=== PATIENT | male | born 1985 | race Caucasian/White ===

== ENCOUNTER 2019-09-26 08:14 | Day surgery (SDC) | payer OTHER ==
[2019-09-25 13:56] VITALS: BMI 21.2
[2019-09-26] MEDS ORDERED: Ciprofloxacin 0.2% Otic 1 DROP CON ONE (08:48)
[2019-09-26] MEDS ORDERED: Ketamine 50 MG/ML (10ML VIAL) ONE (10:24)
[2019-09-26] MEDS ORDERED: Dexamethasone 20 MG/5 ML VIAL ONE (10:24)
[2019-09-26] MEDS ORDERED: Ondansetron PF 4 MG/2 ML Vial ONE (10:24)
[2019-09-26] MEDS ORDERED: Midazolam HCl 2 mg/2 ml Vial ONE (10:33)
[2019-09-26] MEDS ORDERED: AFRIN NASAL MIST 15 ML BOT ONE (11:00)
[2019-09-26] MEDS ORDERED: hydrALAZINE 20 MG/ML VIAL ONE (11:56)
--- NOTE | 2019-09-26 12:00 | OP ---
DATE OF PROCEDURE: 09/26/2019 PREOPERATIVE DIAGNOSES: 1. Chronic otitis externa. 2. Chronic otitis media. 3. Severe developmental delay. POSTOPERATIVE DIAGNOSES: 1. Chronic otitis externa. 2. Chronic otitis media. 3. Severe developmental delay. PROCEDURES PERFORMED: 1. Evaluation under anesthesia. 2. Left myringotomy with tube placement. FINDINGS: The patient was found to have a normal right ear after the ear canal was cleared of obstructive cerumen. The left ear had a severely retracted TM with obliteration of the middle ear space and a significant anterior tympanic membrane retraction with the retraction pocket extending anterior superiorly. There was no obvious squamous debris. PROCEDURE IN DETAIL: The patient was identified, brought to the operating room, placed on the operating table in supine position. General mask anesthesia was performed and we positioned the patient for surgery. The right ear was cleared and obstructive cerumen were removed. The tympanic membrane was visualized and appeared to be relatively intact and with normal middle ear ventilation. We turned attention to the contralateral side, where a significantly different finding was encountered. The eardrum was severely retracted and there was obliteration of the middle ear space with middle ear mucosa being adherent to the retracted tympanic membrane. There was a significant retraction of the anterior tympanic membrane that extended anterosuperiorly without the evidence of squamous debris. A Robbins tube was placed in the posterior inferior aspect of the tympanic membrane and to try to retrieve some middle ear ventilation. Otic drops were applied. The patient was awakened, extubated, and taken to recovery room in stable condition prior to discharge. Job ID: [id number]
== END 2019-09-26 12:50 | disposition home or self-care (01) ==
LOC: SDC 08:14
PROVIDERS: ATTEND Specialist
PROC: 099580Z Drainage of Right Middle Ear with Drainage Device, Via Natural or Artificial Opening Endoscopic (ICD-10-PCS; principal; 2019-09-26)
PROC: 099680Z Drainage of Left Middle Ear with Drainage Device, Via Natural or Artificial Opening Endoscopic (ICD-10-PCS; principal; 2019-09-26)
DX: H66.92 Otitis media, unspecified, left ear (principal); H60.62 Unspecified chronic otitis externa, left ear; H73.892 Other specified disorders of tympanic membrane, left ear; H69.80 Other specified disorders of Eustachian tube, unspecified ear; R62.50 Unspecified lack of expected normal physiological development in childhood; Z88.5 Allergy status to narcotic agent; Z91.040 Latex allergy status; Z91.048 Other nonmedicinal substance allergy status
CPT/HCPCS: J0360; J1100; J2250; J2405

== ENCOUNTER 2020-07-23 06:28 | Day surgery (SDC) | payer MEDICARE, MEDICAID ==
[2020-07-22 12:47] VITALS: BMI 17.4
[2020-07-23] MEDS ORDERED: Ciprofloxacin 0.2% Otic (0.25ML CONTAINER) ONE (06:42)
[2020-07-23] MEDS ORDERED: Fentanyl 100 MCG/2 ML VIAL ONE (07:48)
[2020-07-23] MEDS ORDERED: AFRIN NASAL MIST 15 ML BOT ONE (09:03)
[2020-07-23] MEDS ORDERED: PROPOFOL 200 MG/20 ML VIAL ONE (10:30)
[2020-07-23] MEDS ORDERED: Ondansetron PF 4 MG/2 ML Vial ONE (10:30)
[2020-07-23] MEDS ORDERED: Dexamethasone 20 MG/5 ML VIAL ONE (10:30)
[2020-07-23] MEDS ORDERED: Lidocaine 1% PF 5 ML VIAL ONE (10:30)
--- NOTE | 2020-07-23 11:00 | OP ---
DATE OF PROCEDURE: 07/23/2020 PREOPERATIVE DIAGNOSES: 1. Bilateral serous otitis media. 2. Left chronic otitis media. 3. Left otalgia. 4. Chronic eustachian tube dysfunction. POSTOPERATIVE DIAGNOSES: 1. Bilateral serous otitis media. 2. Left chronic otitis media. 3. Left otalgia. 4. Chronic eustachian tube dysfunction. PROCEDURES PERFORMED: Evaluation under anesthesia with bilateral myringotomy and placement of Paparella type I pressure equalization tubes using binocular microscopy. PROCEDURE IN DETAIL: After consent was obtained, the patient was identified, brought to the operating room, and placed on the operating room table in the supine position. General mask anesthesia was obtained and monitors were placed. The patient was positioned and prepped for otologic surgery in a sterile fashion. With the use of a speculum and microscopic visualization, the external auditory canals were cleared of obstructing cerumen and the tympanic membrane was visualized. An anterior inferior myringotomy was performed with a [place]stdale blade in a radial fashion. We then evacuated middle ear fluid and placed a Paparella type I pressure equalization tube without difficulty. Cortisporin Otic drops were then applied to the external auditory canal followed by application of a cotton ball to the auditory meatus. Subsequent to this, we turned our attention to the contralateral side where a similar procedure was performed. Again under microscopic visualization, the external auditory canal was cleared of obstructing cerumen. The tympanic membrane was visualized and an anterior inferior myringotomy was performed with a Forestdale blade in a radial fashion. Middle ear fluid was evacuated with a #5 suction and a Paparella type I pressure equalization tube was passed without difficulty. We then placed Cortisporin Otic suspension in the external auditory canal followed by the application of a cotton ball to the auricular meatus. The patient was subsequently aroused, awakened, and transported to the recovery room in stable condition. There were no intraoperative complications and the patient was returned to the care of the parents in day surgery waiting area. FINDINGS: The patient had markedly inflamed left tympanic membrane with inflammatory middle ear exudate. Cultures were obtained. The left ear had significant anterior retraction pocket. Job ID: [id number]
[2020-07-27 13:13] LABS: Fungus Stain Final report (.)
== END 2020-07-23 10:24 | disposition home or self-care (01) ==
LOC: SDC 06:28
PROVIDERS: ATTEND Specialist
PROC: 099680Z Drainage of Left Middle Ear with Drainage Device, Via Natural or Artificial Opening Endoscopic (ICD-10-PCS; principal; 2020-07-23)
PROC: 099580Z Drainage of Right Middle Ear with Drainage Device, Via Natural or Artificial Opening Endoscopic (ICD-10-PCS; 2020-07-23)
PROC: 099680Z Drainage of Left Middle Ear with Drainage Device, Via Natural or Artificial Opening Endoscopic (ICD-10-PCS; 2020-07-23)
PROC: 099580Z Drainage of Right Middle Ear with Drainage Device, Via Natural or Artificial Opening Endoscopic (ICD-10-PCS; 2020-07-23)
DX: H65.22 Chronic serous otitis media, left ear (principal); H65.91 Unspecified nonsuppurative otitis media, right ear; H69.83 Other specified disorders of Eustachian tube, bilateral; J45.901 Unspecified asthma with (acute) exacerbation; G43.909 Migraine, unspecified, not intractable, without status migrainosus; Z79.899 Other long term (current) drug therapy; Z88.5 Allergy status to narcotic agent; Z91.040 Latex allergy status; Z91.048 Other nonmedicinal substance allergy status
CPT/HCPCS: 87070; 87077; 87102; 87186; 87205; 87206; J1100; J2405; J2704; J3010